=== PATIENT | male | born 1945 | race Caucasian/White ===

== ENCOUNTER 2017-12-16 09:03 | Day surgery (SDC) | payer MEDICARE ==
--- NOTE | 2017-12-16 02:20 | History and Physical Report ---
DATE: 12/15/2017. CHIEF COMPLAINT AND HISTORY OF CHIEF COMPLAINT: This patient presents with a history of intractable postlumbar laminectomy radiculopathy. He has had three spinal surgeries including cervical, thoracic, and lumbar. Due to the failure of all therapy, he presents today for an implanted spinal catheter infusion trial with hydromorphone to determine if the implantation of a permanent system can be of any value in pain control. PAST MEDICAL HISTORY: Hypertension, thrombophlebitis, pancreatitis. PAST SURGICAL HISTORY: Lumbar, cervical, and thoracic spinal surgeries; retinal surgery; prostate surgery; bilateral hip replacements. MEDICATIONS ON ADMISSION: To be provided. ALLERGIES: Codeine and Ultram. SOCIAL HISTORY: Caffeine. FAMILY HISTORY: Hypertension, prostate cancer. REVIEW OF SYSTEMS: The patient is appropriate and in no acute distress. The remainder of the systems review shows glasses, dentures, blood pressure problems , peripheral edema, chronic abdominal pain, depression, difficulty sleeping. PHYSICAL EXAMINATION: General: Height and weight are unavailable. Vital Signs: Unavailable. HEENT: Within normal limits. Lungs: Clear. Heart: Regular rate and rhythm. Abdomen: Nontender. Musculoskeletal: Examination of the musculoskeletal system shows diffuse and generalized sensory and motor abnormalities. Sensory matos are dulled and difficult to elicit. His motor functionality shows diffuse weakness across the anterior and posterior musculature. Ambulation: He is assistive device dependent for ambulation. Neurologic: Cranial nerves are intact. IMPRESSION: 1. POST LUMBAR LAMINECTOMY SYNDROME, ICD-10 CODE M96.1. 2. LUMBAR RADICULOPATHY, ICD-10 CODE M54.16 AND M54.17. PLAN: The patient is here for an implanted spinal catheter infusion trial with hydromorphone to determine if the implantation of a permanent system can be of any value in pain control. He has pedicle screw and katina fusion from T11 through L2 along with bone fusion and laminectomies throughout L3 through 5-S1. Catheter placement will be below the hardware fusion. The question will be whether or not an epidural blood patch can be performed in the laminotomy sites. Our plan is for an implanted catheter trial with hydromorphone with an external pump. The potential risks, side effects, and complications have been carefully reviewed and discussed including spinal cord injury, nerve root injury , and spinal headache. Information was provided and reviewed including that provided by the international account representative who discussed it with the patient. We have discussed all of the potential risks, side effects, and complications. The patient understands and has agreed and consented. We will consider the procedure outpatient, although an overnight stay will be evaluated. JOB NUMBER: [id number] cc: Isaak Quach M.D. MTDJean Pierre
[~2017-12-16 09:03] MED LIST: ACETAMINOPHEN 1,000 MG/100 ML BTL IV ONE; CEFAZOLIN 2 Gram 2 GM/50 ML BAG IVPB ONE; FAMOTIDINE 20MG TABLET PO ONE; HYDROMORPHONE PF 2MG/ML AMP 0.008 MG in 0.9 % SODIUM CHLORIDE 10ML VIA 0.996 ML IV ONE; HYDROMORPHONE PF 2MG/ML AMP 4 MG in 0.9 % SODIUM CHLORIDE 500ML 498 ML IV ONE; MECLIZINE 25 MG TABLET PO ONE; METOCLOPRAMIDE 10 MG TABLET PO ONE
[2017-12-16] MEDS ORDERED: PROPOFOL 10 MG/ML VIAL IV ONE (09:04)
[2017-12-16] MEDS ORDERED: LIDOCAINE 2% MDV (20MG/ML) 20ML VIAL IV ONE (09:04)
[2017-12-16] MEDS ORDERED: BUPIVACAINE 0.5% W/EPI MPF 30 ML VIAL IVP ONE (09:04)
[2017-12-16] MEDS ORDERED: LABETALOL HCL 5MG/ML, 20ML VIAL IV ONE (09:04)
[2017-12-16] MEDS ORDERED: FENTANYL PF 100MCG/2ML VIAL IV ONE (09:04)
[2017-12-16] MEDS ORDERED: HYDROMORPHONE HCL 2 MG/ML VIAL IV ONE ×2 (09:04)
[2017-12-16] MEDS ORDERED: MIDAZOLAM HCL 2MG/2ML VIAL IV ONE (09:04)
[2017-12-16] MEDS ORDERED: *PACU ONLY* KETAMINE HCL 10 MG/ML (20ML) VIAL IV ONE (09:04)
[2017-12-16] MEDS ORDERED: LIDOCAINE 1% W/EPI 1:200,000 MPF 30ML SQ ONE (09:04)
[2017-12-16 10:09] LABS: PARTIAL THROMBOPLASTIN TIME 26.6 SECONDS (24.5-39.1)
[2017-12-16] MEDS ORDERED: ACETAMINOPHEN 325 MG TAB PO PRN ×2 (12:21)
[2017-12-16] MEDS ORDERED: NALOXONE 0.4 MG/1 ML VIAL IVP PRN (12:21)
[2017-12-16] MEDS ORDERED: METOCLOPRAMIDE 10 MG TABLET PO PRN (12:21)
[2017-12-16] MEDS ORDERED: DIPHENHYDRAMINE HCL 50 MG/ML VIAL IVP PRN ×2 (12:21)
[2017-12-16] MEDS ORDERED: DIPHENHYDRAMINE HCL 25 MG CAPSULE PO PRN ×2 (12:21)
[2017-12-16] MEDS ORDERED: METOCLOPRAMIDE HCL 10 MG/2 ML VIAL IVP PRN (12:21)
[2017-12-16] MEDS ORDERED: OXYCODONE/APAP 10MG-325MG TABLET PO PRN (12:21)
[2017-12-16] MEDS ORDERED: TEMAZEPAM 15 MG CAPSULE PO PRN ×2 (12:21)
[2017-12-16] MEDS ORDERED: HYDROCODONE/APAP 7.5/325MG TABLET PO PRN ×2 (12:21)
[2017-12-16] MEDS ORDERED: HYDROMORPHONE HCL 2 MG/ML VIAL IM PRN ×2 (12:21)
[2017-12-16] MEDS ORDERED: AL HYDROX/MAG HYDROX 30ML UD PO PRN (12:21)
[2017-12-16] MEDS ORDERED: SENNOSIDES/DOCUSATE SODIUM UD CAPSULE PO PRN ×2 (12:21)
[2017-12-16] MEDS: RINGERS SOLUTION,LACTATED 1,000 ML IV SCH ×2 (13:22→21:10)
[2017-12-16] MEDS: MORPHINE SULFATE 15 MG TABLET PO SCH ×3 (13:55→22:12)
[2017-12-16] MEDS: ALPRAZOLAM 1 MG TAB PO SCH ×3 (13:56→22:15)
[2017-12-16] MEDS: CARISOPRODOL 350 MG PO SCH ×2 (15:57→22:11)
[2017-12-16] MEDS: CEFAZOLIN 2 Gram 2 GM/50 ML BAG IVPB SCH (18:10)
[2017-12-16] MEDS: OXYCODONE/APAP 10MG-325MG TABLET PO PRN (20:05)
[2017-12-16] MEDS: PATIENT OWN MED: AMITIZA 24 MCG PO SCH (22:11)
[2017-12-16] MEDS: GABAPENTIN 300 MG CAPSULE PO SCH (22:13)
[2017-12-16] MEDS: DULOXETINE HCL 30 MG CAPSULE.DR PO SCH (22:14)
[2017-12-16] MEDS: LISINOPRIL 20 MG TABLET PO SCH (22:15)
[2017-12-16] MEDS ORDERED: MAGNESIUM HYDROXIDE 30 ML UDC PO ONE (23:43)
[2017-12-17] MEDS: OXYCODONE/APAP 10MG-325MG TABLET PO PRN ×3 (00:05→09:20)
[2017-12-17] MEDS: CEFAZOLIN 2 Gram 2 GM/50 ML BAG IVPB SCH ×2 (01:05→08:15)
[2017-12-17] MEDS: RINGERS SOLUTION,LACTATED 1,000 ML IV SCH (05:21)
[2017-12-17] MEDS: MORPHINE SULFATE 15 MG TABLET PO SCH ×2 (06:00→09:13)
--- NOTE | 2017-12-17 06:45 | Operative Note ---
DATE OF SURGERY: 12/16/2017. PREOPERATIVE DIAGNOSIS: 1. POST LUMBAR LAMINECTOMY SYNDROME, ICD-10 CODE M96.1. 2. LUMBAR RADICULOPATHY, ICD-10 CODE M54.16 AND M54.17. POSTOPERATIVE DIAGNOSIS: 1. POST LUMBAR LAMINECTOMY SYNDROME, ICD-10 CODE M96.1. 2. LUMBAR RADICULOPATHY, ICD-10 CODE M54.16 AND M54.17. OPERATION: 1. Fluoroscopically guided access, spinal space at L3-4. Placement of thin- walled spinal catheter at T11. 2. Diagnostic myelography with radiologic supervision and interpretation. 3. Bolus of hydromorphone into the spinal space at 0.004 mg. 4. Incision, subcutaneous dissection, and anchoring of spinal catheter to supraspinous fascia using anchoring device and nonabsorbable suture. 5. Incision, subcutaneous dissection, and creation of subcutaneous pouch at left flank for possible placement of pump identified as [employer]. 6. Tunneling between spinal catheter pouch into flank pouch by way of tunneling tool extending spinal catheter. Interface and resect spinal catheter with a second catheter component by way of connector. 7. Second catheter component tunneled 6.0 cm superior to pouch exiting skin. Interface to external pump set to deliver hydromorphone at 0.08 mg per day. 8. Closure of midline incision with Vicryl for the fascia and running nylon for the skin. Closure of left flank pouch with running nylon for the skin. Dressings were placed securing catheter and all incisions under sterile dressing. 9. No blood patch was performed. SURGEON: Micah Taylor D.O. ANESTHESIA: Local sedation. ANESTHESIA PROVIDER: Akila Zavaleta CRNA INDICATION: This patient presents with a history of intractable postlumbar laminectomy radiculopathy. He has had no fewer than 18 spinal surgeries. Due to the failure of all therapies, he is here for an implanted spinal catheter infusion trial with hydromorphone to determine if the implantation of a permanent system can be of any value in his pain control. DESCRIPTION OF PROCEDURE: Intravenous lines, vital sign monitoring, and intravenous sedation. Prepped and draped with sterile technique with the patient positioned prone. The spinal interspace at L3-4 was marked and infiltrated. A 20-tay spinal needle with a paramedian approach, beveled with the long axis was inserted into the spinal space with cerebrospinal fluid flow. This was accomplished using imaging with AP and lateral views. With cerebrospinal fluid flow, a thin-walled spinal catheter was advanced and positioned at T11. The needle was retracted slightly to stop cerebrospinal fluid flow which was noted. The skin above and below the needle was infiltrated. An incision was made and subcutaneous dissection was conducted to the supraspinous fascia. The needle was removed, and the catheter was anchored to the supraspinous fascia with an anchoring device and nonabsorbable suture. Cerebrospinal fluid was still noted through the catheter. Diagnostic myelography was performed, and the flow characteristics were distinctly abnormal but appropriate. There was no pain or response on the part of the of the patient with the injection. A bolus of hydromorphone 0.004 mg was given. Cerebrospinal fluid was still noted through the catheter. The catheter was clamped to stop the cerebrospinal fluid leak. At the left flank, a site for the possible placement of the programmable pump, the skin was infiltrated. Incision was made and subcutaneous dissection was conducted to form a small subcutaneous pouch. The spinal catheter was then tunneled into this flank pouch. The spinal catheter was resected and interfaced with the second catheter component by way of the connector. The second catheter component was tunneled 6.0 cm superior from this pouch and exited the skin. This external component was then interfaced to an external infusion pump which was set to deliver hydromorphone at 0.08 mg a day. The midline incision was closed with Vicryl for the fascia and a running nylon suture for the skin. The left flank pouch was closed with a running nylon. Dressings were placed securing the incisions, catheter, and all connections under sterile dressing with the pump set to infuse 0.08 mg a day. The patient was kept flat and transported to the recovery room stable, showing no side effects from the procedure or the sedation. He had full functionality of the extremities, and he was complaining of no pain other than the incision. No epidural blood patch was performed because there was no access from the diffuse spinal surgical sites. He will be monitored and kept overnight and will then be discharged in the morning. DISCHARGE INSTRUCTIONS: 1. The sites are to remain clean and dry. No showering or bathing in any way that would disrupt the dressings. If this happens, contact the clinic. 2. Standard medications to be resumed including Levaquin the antibiotic 500 mg once a day for 14 days. 3. He will be contacted by the office in the next 24 to 48 hours to set up an appointment in the office for his first increase in the infusion. A total of three increases will be scheduled in the office. At the end of this 14-day trial period, he will be brought back to surgery and either the internal catheter will be removed or the permanent pump will be interfaced and placed. 4. Spinal opioid side effects including respiratory depression, nausea, vomiting, constipation, urinary retention, lightheadedness, and rash have all been discussed and reviewed. 5. He will be seen in the office within the next five to seven days. 6. All other instructions were provided and numbers to contact with problems were given. JOB NUMBER: [id number] cc: Isaak Romano M.D. MTDD
[2017-12-17] MEDS ORDERED: PANTOPRAZOLE SODIUM 40 MG TABLET PO SCH (07:00)
[2017-12-17] MEDS: CARISOPRODOL 350 MG PO SCH (09:10)
[2017-12-17] MEDS: PATIENT OWN MED: AMITIZA 24 MCG PO SCH (09:11)
[2017-12-17] MEDS: GABAPENTIN 300 MG CAPSULE PO SCH (09:11)
[2017-12-17] MEDS: ALPRAZOLAM 1 MG TAB PO SCH (09:12)
[2017-12-17] MEDS: LISINOPRIL 20 MG TABLET PO SCH (09:13)
[2017-12-17] MEDS: DULOXETINE HCL 30 MG CAPSULE.DR PO SCH (09:13)
[2017-12-17] MEDS ORDERED: METOPROLOL SUCC 50 MG TABLET PO SCH (10:00)
[2017-12-17] MEDS ORDERED: SIMVASTATIN 20 MG TABLET PO SCH (10:00)
[2017-12-17] MEDS ORDERED: FLUOXETINE HCL 20 MG CAPSULE PO SCH (10:00)
--- NOTE | 2017-12-18 22:07 | RADIOLOGY REPORT ---
EXAM: SPINE, 1 VIEW HISTORY: POST PAIN PUMP TRIAL. TECHNIQUE: Single AP view of the lumbar spine. COMPARISON: No prior lumbar spine series. FINDINGS: The patient is post-op posterior fusion of T12 to L3 with interpedicular screws and bridging rods. The patient was rotated somewhat but there appears to be extensive bony fusion, particularly along the left side of the lumbar spine. Bilateral AMINAH's are partially seen. There may be some faint contrast density in the region of the spinal canal at the lumbosacral level and correlation with the procedure history is suggested. There is a tiny dot-like density overlying the T12 vertebral body, which could be the superior extent of an intraspinal catheter in the appropriate clinical setting and, again, correlation with the procedure history is suggested. IMPRESSION: 1. BILATERAL AMINAH'S PARTIALLY SEEN. 2. EXTENSIVE POST-OP POSTERIOR FUSION FROM T12 TO L3 AND PROBABLY BONY FUSION ALONG THE LEFT SIDE OF MUCH OF THE LUMBAR SPINE DOWN TO THE SACRUM. 3. POSSIBLE SMALL AMOUNT OF CONTRAST IN THE SPINAL CANAL AT THE LUMBOSACRAL LEVEL AND POSSIBLY A TINY CATHETER MARKER AT THE T12 LEVEL. CORRELATION WITH THE PROCEDURE ITSELF SUGGESTED. JOB NUMBER: [id number] [facility]
== END 2017-12-17 11:43 | disposition home or self-care (01) ==
LOC: SUR 09:03 → MEDSURG 12:25 → SUR 12-17 11:23
PROVIDERS: ATTEND Pain Medicine Interventional Pain Medicine
DX: M96.1 Postlaminectomy syndrome, not elsewhere classified (principal); M54.16 Radiculopathy, lumbar region; M54.17 Radiculopathy, lumbosacral region; I10 Essential (primary) hypertension; E78.00 Pure hypercholesterolemia, unspecified; D64.9 Anemia, unspecified; G89.29 Other chronic pain
CPT/HCPCS: 62350; 62362; 01936; 85730; 85002; 72020; 94760 ×2; Q9967; J3010; J1170 ×2; J0690 ×2; J7040; J7120

== ENCOUNTER 2017-12-30 13:48 | Day surgery (SDC) | payer MEDICARE ==
--- NOTE | 2017-12-30 06:35 | History and Physical Report ---
DATE: 12/30/2017. CHIEF COMPLAINT AND HISTORY OF CHIEF COMPLAINT: This patient presents with a history of many laminectomies and lumbar radiculopathy. An implanted spinal catheter infusion trial was initiated on 12/16/2017. Although he has not experienced greater than 50 percent pain control, he has been able to withdraw off medications and has been able to improve his overall leg stability. He is here for possible completion of the implanted infusion trial by placement of a programmable pump interfaced to the indwelling spinal catheter for a continuous intraspinal infusion of hydromorphone. PAST MEDICAL HISTORY: Hypertension, thrombophlebitis, pancreatitis. PAST SURGICAL HISTORY: Lumbar and cervical thoracic spinal surgeries estimated at 17 total, bilateral hip replacements, prostate surgery. MEDICATIONS ON ADMISSION: To be provided. ALLERGIES: Codeine and Ultram. SOCIAL HISTORY: Caffeine. FAMILY HISTORY: Hypertension and prostate cancer. REVIEW OF SYSTEMS: The patient is appropriate and in no acute distress. The remainder of the systems review shows glasses, dentures, blood pressure problems , peripheral edema, chronic abdominal pain, depression, and difficulty sleeping. PHYSICAL EXAMINATION: General: Height and weight are unavailable. Vital Signs: Unavailable. HEENT: Within normal limits. Lungs: Clear. Heart: Rapid. Abdomen: Nontender. Musculoskeletal: Examination of the musculoskeletal system shows the dressings for the implanted catheter trial in place and intact. The infusion pump is functional. Primary pain pattern is a postlaminectomy radiculopathy. There is bilateral lower extremity function. The sensory evaluation shows deficits across major dermatome front and back surface of the legs. His motor function is difficult to assess as he is sitting in a wheelchair and has generalized weakness throughout his extremities. Neurologic: Cranial nerves are intact. IMPRESSION: 1. POSTLUMBAR LAMINECTOMY SYNDROME, ICD-10 CODE M96.1. 2. LUMBAR RADICULOPATHY, ICD-10 CODE M54.16 AND M54.17. PLAN: This patient is here for completion of the implanted spinal catheter infusion trial with hydromorphone. At this point we are still negotiating and discussing whether or not implantation of a device would be of appreciable value. He has achieved some degree of functionality, and his and the patient also agree that this is the best pain control he has achieved; although he has not, as instructed, stopped his oral benzodiazepines or muscle relaxants. The patient and his 's comments are that he has come off of so many oral opioids that he needs this medication to prevent him from going into withdrawal. Although I would certainly agree he was on a significantly, and unusually high, amount of oral medications, and we have been successful in weaning him off of those medications, he still has not complied with the instructions. I will state to the patient and his for qualification if we implant the device he must come off of his medications. I will not prescribe his medications and I will only provide him with the device. If this is insufficient then no device will be implanted today. If he agrees to these conditions, we will implant the device and manage the infusions in an attempt to provide him with better quality of life and functionality. We will consider the procedure outpatient, although an overnight stay may be necessary because of his history. JOB NUMBER: [id number] cc: Isaak Quach M.D. MTDJean Pierre
[~2017-12-30 13:48] MED LIST changes: +HYDROMORPHONE HCL 0.08 GM in 0.9 % SODIUM CHLORIDE 10ML VIA 40 ML IV ONE; +HYDROMORPHONE PF 2MG/ML AMP 0.004 MG in 0.9 % SODIUM CHLORIDE 10ML VIA 0.998 ML IV ONE
[2017-12-30] MEDS ORDERED: MIDAZOLAM HCL 2MG/2ML VIAL IV ONE (13:49)
[2017-12-30] MEDS ORDERED: PROPOFOL 10 MG/ML VIAL IV ONE (13:49)
[2017-12-30] MEDS ORDERED: LIDOCAINE 1% MDV (10MG/ML) 20ML VIAL SQ ONE (13:49)
--- NOTE | 2017-12-31 13:38 | Operative Note - Ferro ---
DATE OF SURGERY: 12/30/2017 PREOPERATIVE DIAGNOSIS: 1. POST LUMBAR LAMINECTOMY SYNDROME, ICD-10 CODE M96.1. 2. LUMBAR RADICULOPATHY, ICD-10 CODE M54.16 AND M54.17. 3. IMPLANTED SPINAL CATHETER INFUSION TRIAL HYDROMORPHONE. POSTOPERATIVE DIAGNOSIS: 1. POST LUMBAR LAMINECTOMY SYNDROME, ICD-10 CODE M96.1. 2. LUMBAR RADICULOPATHY, ICD-10 CODE M54.16 AND M54.17. 3. IMPLANTED SPINAL CATHETER INFUSION TRIAL HYDROMORPHONE. OPERATION: 1. REMOVAL OF EXTERNAL DRESSING, SECURING EXTERNAL CATHETER INTERFACE TO IMPLANTED CATHETER AND EXTERNAL INFUSION PUMP. 2. NEW INFUSION BAG 500 ML HYDROMORPHONE 0.008 MG PER ML CONCENTRATION, INTERFACE EXTERNAL CATHETER, EXTERNAL CATHETER INTERFACED TO IMPLANTED SPINAL CATHETER USING FULL STERILE TECHNIQUE. 3. DIAGNOSTIC MYELOGRAPHY WITH RADIOLOGIC SUPERVISION AND INTERPRETATION. 4. INITIATING EXTERNAL INFUSION PUMP TO DELIVER HYDROMORPHONE AT 0.485 MG HYDROMORPHONE PER DAY. SURGEON: Micah Taylor D.O. ANESTHESIA: Local sedation. ANESTHESIA PROVIDER: Nick Hahn CRNA INDICATION: This patient with an ongoing implanted spinal catheter infusion trial of Hydromorphone has reached the maximum limit of the current infusion bag and has not achieved appreciable pain control. Because he has not achieved significant pain control due to the limitations of the infusion volume in the external bag, he has not been able to reduce oral medications and we are unable to evaluate the success of the trial to determine if implanting a permanent system would be of value and for that reason we will remove under sterile conditions the dressings which are enclosing the external portion of the implanted catheter along with the external catheter component to the external infusion pump, replacing the infusion bag with the new 500 ml volume and reinitiate the infusion trial starting at an increased dose. His trial will extend seven days and at the end of that seven day period we will either implant a full complete system or remove the implanted the catheter. PROCEDURE: An intravenous line was placed, vital sign monitoring, IV sedation by Anesthesia, the patient was positioned prone, sterile prep. All of the external dressing was removed under sterile conditions. A sterile prep was performed. The external catheter connection to the implanted catheter was then using external component to the implanted spinal catheter and maintaining sterility, a diagnostic myelogram was performed under radiologic supervision and interpretation. The contrast flow characteristics identified the tip of the catheter surrounded by extensive fusion hardware of the spine with appropriate myelogram characteristics identified the tip of the catheter would presume to approximate the T12-L1 level. At that point a bolus of Hydromorphone 0.004 mg was given through the spinal catheter. A new external pump catheter component was placed onto the field maintaining its sterility, this catheter component was interfaced to a new 500 ml infusion bag filled with Hydromorphone at 0.008 mg per ml. This new catheter component was then interfaced with the external permanent catheter connection. A dressing was placed securing the connection between the internal and external catheter under full sterile dressing securing the catheter externally under the dressing to insure the catheter would not be pulled or . The infusion on the external pump was then started at delivery of 0.485 mg per day. He was transferred to the Recovery Room stable, no side effects. He will be monitored until stable and then discharged. DISCHARGE INSTRUCTIONS: 1. He will continue the trial for seven days, at the end of the seven day period we will either remove the implanted catheter or implant the pump itself. 2. He is to reduce his Soma as previously instructed from two 350 mg three times a day to one 350 mg three times a day. Initially he was told to reduce his Xanax from four to zero per day. I have allowed him to go back to his original dose of Xanax 0.5 mg four times a day because of the potential withdrawal. His oral immediate release Morphine which is 15 mg per pill taking five a day. He has exceeded the dose taking seven to eight a day so no refills will be provided. 3. The office is to contact the patient in the next two to three days to evaluate his status. He will continue with his previous restrictions maintaining sterility of the dressings. No showering or bathing in any way. He will be evaluated for potential side effect. He should monitor for lightheadedness, drowsiness, urinary retention, rash, or constipation. Any lightheadedness or drowsiness or other complications should be reported to the clinic or go to the local Emergency Room. All other instructions were provided. JOB NUMBER: [id number] MTDD
== END 2017-12-30 16:52 | disposition home or self-care (01) ==
LOC: SUR 13:48
PROVIDERS: ATTEND Pain Medicine Interventional Pain Medicine
DX: M96.1 Postlaminectomy syndrome, not elsewhere classified (principal); M54.16 Radiculopathy, lumbar region; M54.17 Radiculopathy, lumbosacral region; I10 Essential (primary) hypertension; E78.00 Pure hypercholesterolemia, unspecified
CPT/HCPCS: 62350; 01936; J0690; J1170; J7040

== ENCOUNTER 2018-05-26 09:41 | Day surgery (SDC) | payer MEDICARE ==
--- NOTE | 2018-05-25 15:52 | History and Physical - Ferro ---
CHIEF COMPLAINT/HISTORY OF CHIEF COMPLAINT: This patient with a post laminectomy radiculopathy had a spinal opioid infusion trial in the past, but ended up being hospitalized for other reasons and was evaluated for surgery. The spinal catheter was reviewed and the trial terminated. He is here today for repeat trial with an implanted catheter with Hydromorphone. PAST MEDICAL HISTORY: Hypertension, thrombophlebitis, and pancreatitis. PAST SURGICAL HISTORY: Eighteen lumbar spinal surgeries, retinal surgery, prostate surgery, and bilateral hip replacements. MEDICATIONS ON ADMISSION: List to be provided. ALLERGIES: CODEINE AND ULTRAM. FAMILY/PSYCHOSOCIAL HISTORY: Social history - Caffeine. Family history - Hypertension and prostate cancer. SYSTEMS REVIEW: The patient is appropriate. The remainder of the systems review is positive for glasses, dentures, blood pressure problems, hypertension , peripheral edema, chronic abdominal pain, depression and difficulty sleeping. PHYSICAL EXAMINATION: Height is 5'11", no weight noted. Vital signs - Blood pressure 140/80. Current examination shows diffuse tenderness throughout the thoracic and lumbar spine. Range of motion is difficult and painful producing pain throughout both lower extremities across the front and back surface. There is a generalized weakness into both legs and a generalized pattern of numbness across the front and back surface of both legs. Ambulation - Assistive device utilized. NEUROLOGIC: Cranial nerves are intact. IMPRESSION: POST LUMBAR LAMINECTOMY SYNDROME, ICD-10 CODE M96.1 WITH RADICULOPATHY, ICD-10 CODE M54.16 AND M54.17. PLAN: The patient is here for an implanted spinal catheter infusion trial with Hydromorphone. The procedure will be considered outpatient although an overnight stay will be evaluated. The potential risks, side effects, and complications have been carefully reviewed and discussed including nerve root injury, spinal cord injury, and paralysis. The trial will run for two weeks, during this period of time we will schedule three increases and at the end of the two week trial period we will either implant the permanent device and remove the implanted catheter. An epidural blood patch will be performed during this hospitalization so he will stay flat for four and slowly elevated for one as a prophylactic measure. The patient understands and agrees and complies. JOB NUMBER: [id number] MTDD
[~2018-05-26 09:41] MED LIST changes: -HYDROMORPHONE HCL 0.08 GM in 0.9 % SODIUM CHLORIDE 10ML VIA 40 ML IV ONE; -HYDROMORPHONE PF 2MG/ML AMP 0.004 MG in 0.9 % SODIUM CHLORIDE 10ML VIA 0.998 ML IV ONE; -HYDROMORPHONE PF 2MG/ML AMP 4 MG in 0.9 % SODIUM CHLORIDE 500ML 498 ML IV ONE; +HYDROMORPHONE PF 2MG/ML AMP 8 MG in 0.9 % SODIUM CHLORIDE 500ML 496 ML IV ONE
[2018-05-26] MEDS ORDERED: HYDROMORPHONE HCL 2 MG/ML VIAL IV ONE (09:42)
[2018-05-26] MEDS ORDERED: 0.9 % SODIUM CHLORIDE 10 ML VIAL IVP ONE (09:42)
[2018-05-26] MEDS ORDERED: CEFAZOLIN 1G VIAL IM ONE (09:42)
[2018-05-26] MEDS ORDERED: MIDAZOLAM HCL 2MG/2ML VIAL IV ONE (09:42)
[2018-05-26] MEDS ORDERED: FENTANYL PF 100MCG/2ML VIAL IV ONE (09:42)
[2018-05-26] MEDS ORDERED: PROPOFOL 10 MG/ML VIAL IV ONE (09:42)
[2018-05-26] MEDS ORDERED: BUPIVACAINE 0.5% W/EPI MPF 30 ML VIAL IVP ONE (09:42)
[2018-05-26] MEDS ORDERED: LIDOCAINE 2% MDV (20MG/ML) 20ML VIAL IV ONE (09:42)
[2018-05-26] MEDS ORDERED: LIDOCAINE 1% W/EPI 1:200,000 MPF 30ML SQ ONE (09:42)
[2018-05-26] MEDS ORDERED: HYDROMORPHONE HCL 2 MG/ML VIAL IM PRN (14:10)
[2018-05-26] MEDS ORDERED: NALOXONE 0.4 MG/1 ML VIAL IVP PRN (14:10)
[2018-05-26] MEDS ORDERED: METOCLOPRAMIDE 10 MG TABLET PO PRN (14:10)
[2018-05-26] MEDS ORDERED: TEMAZEPAM 15 MG CAPSULE PO PRN ×2 (14:10)
[2018-05-26] MEDS ORDERED: SENNOSIDES/DOCUSATE SODIUM UD CAPSULE PO PRN ×2 (14:10)
[2018-05-26] MEDS ORDERED: OXYCODONE/APAP 10MG-325MG TABLET PO PRN (14:10)
[2018-05-26] MEDS ORDERED: HYDROCODONE/APAP 7.5/325MG TABLET PO PRN ×2 (14:10)
[2018-05-26] MEDS ORDERED: AL HYDROX/MAG HYDROX 30ML UD PO PRN (14:10)
[2018-05-26] MEDS ORDERED: ACETAMINOPHEN 325 MG TAB PO PRN ×2 (14:10)
[2018-05-26] MEDS ORDERED: METOCLOPRAMIDE HCL 10 MG/2 ML VIAL IVP PRN (14:10)
[2018-05-26] MEDS ORDERED: DIPHENHYDRAMINE HCL 25 MG CAPSULE PO PRN ×2 (14:10)
[2018-05-26] MEDS ORDERED: DIPHENHYDRAMINE HCL 50 MG/ML VIAL IVP PRN ×2 (14:10)
[2018-05-26] MEDS ORDERED: TIZANIDINE HCL 4 MG TABLET PO PRN (14:13)
[2018-05-26] MEDS ORDERED: LISINOPRIL 10 MG TABLET PO ONE (15:00)
[2018-05-26] MEDS: TRAZODONE 50 MG TABLET PO SCH ×2 (15:51→21:53)
[2018-05-26] MEDS: RINGERS SOLUTION,LACTATED 1,000 ML IV SCH ×2 (16:09→21:56)
[2018-05-26] MEDS: HYDROMORPHONE HCL 2 MG/ML VIAL IM PRN ×2 (17:48→21:55)
[2018-05-26] MEDS: OXYCODONE/APAP 10MG-325MG TABLET PO PRN (19:52)
[2018-05-26] MEDS: CEFAZOLIN 2 Gram 2 GM/50 ML BAG IVPB SCH (19:53)
[2018-05-26] MEDS: DULOXETINE HCL 30 MG CAPSULE.DR PO SCH (21:53)
[2018-05-26] MEDS: LISINOPRIL 10 MG TABLET PO SCH (21:53)
[2018-05-26] MEDS: GABAPENTIN 300 MG CAPSULE PO SCH (21:53)
[2018-05-26] MEDS ORDERED: PANTOPRAZOLE SODIUM 40 MG TABLET PO SCH (22:00)
[2018-05-26] MEDS ORDERED: ZOLPIDEM TARTRATE 5 MG TABLET PO SCH (22:00)
[2018-05-27] MEDS: OXYCODONE/APAP 10MG-325MG TABLET PO PRN ×3 (01:40→10:13)
[2018-05-27] MEDS: CEFAZOLIN 2 Gram 2 GM/50 ML BAG IVPB SCH (03:34)
[2018-05-27] MEDS: HYDROMORPHONE HCL 2 MG/ML VIAL IM PRN (04:32)
[2018-05-27] MEDS: RINGERS SOLUTION,LACTATED 1,000 ML IV SCH (05:57)
[2018-05-27] MEDS ORDERED: SIMVASTATIN 20 MG TABLET PO SCH (10:00)
[2018-05-27] MEDS ORDERED: METOPROLOL SUCC 50 MG TABLET PO SCH (10:00)
[2018-05-27] MEDS: DULOXETINE HCL 30 MG CAPSULE.DR PO SCH (10:14)
[2018-05-27] MEDS: LISINOPRIL 10 MG TABLET PO SCH (10:14)
[2018-05-27] MEDS: TRAZODONE 50 MG TABLET PO SCH (10:14)
[2018-05-27] MEDS: GABAPENTIN 300 MG CAPSULE PO SCH (10:15)
--- NOTE | 2018-05-27 12:56 | RADIOLOGY REPORT ---
EXAM: THORACIC SPINE HISTORY: PAIN PUMP TRIAL. TECHNIQUE: Portable AP view of the thoracic spine was performed. FINDINGS: Pain pump tip in the lumbar spine. Postop fusion of T12 through L3 levels. IMPRESSION: POSTOP FUSION OF T12 THROUGH L1. PAIN PUMP TIP AT THE L1 LEVEL. JOB NUMBER: [id number] MTDD
--- NOTE | 2018-05-28 08:03 | Operative Note ---
DATE: 05/26/2018. PRIMARY CARE PHYSICIAN: Kristina Woodward M.D. PREOPERATIVE DIAGNOSES: 1. POSTLUMBAR LAMINECTOMY SYNDROME, ICD-10 CODE M96.1. 2. LUMBAR RADICULOPATHY, ICD-10 CODE M54.16 AND M54.17. PROCEDURES: 1. Fluoroscopically guided access spinal space at L4-5. Placement of thin- walled spinal catheter at T10-11. 2. Diagnostic myelography with radiologic supervision and interpretation. 3. Spinal opioid bolus of hydromorphone 0.06 mg into the spinal space. 4. Incision, subcutaneous dissection, and anchoring of spinal catheter to supraspinous fascia with an anchor and nonabsorbable suture. 5. Incision, subcutaneous dissection, and creation of subcutaneous pouch at the left flank. 6. Tunneling between midline catheter pouch to flank pouch, extending spinal catheter into the flank pouch. Resect and revise spinal catheter to second catheter component by way of connector. 7. Tunneling of secondary catheter component 6.0 cm superior to the flank pouch exiting the skin. 8. Interface external catheter to external pump set to deliver hydromorphone at 0.08 mg per day. 9. Closure of midline incision with Stratafix suture; #2-0 for the fascia and # 3-0 for the skin. Dermabond closure. Closure of left flank pouch with running nylon. 10. Evaluated for epidural blood patch. Not performed because of extensive hardware, laminectomy, and fusion. SURGEON: Micah Taylor D.O. ANESTHESIA: Local sedation. ANESTHESIA PROVIDER: Nick Hahn CRNA INDICATIONS: This patient presents with a history of a extensive and multiple- level spinal surgeries with screws and rods from T11 through L1 with laminectomy and fusion at L2 and L3. He is here for an implanted spinal catheter infusion trial with hydromorphone to determine if the implantation of a permanent system can be of any value in pain control. DESCRIPTION OF PROCEDURE: Intravenous lines, vital sign monitoring, and intravenous sedation. Prepped and draped with sterile technique. Spinal access was limited to L4-5. The skin was infiltrated. A 20-gauge spinal needle was used through a paramedian approach, beveled with the long axis, and was inserted into the spinal space under AP and lateral imaging. The needle was advanced into the spinal space on the lateral image. With cerebrospinal fluid flow, a thin-walled spinal catheter was advanced and positioned at T10- 11. Diagnostic myelography was performed and showed appropriate flow characteristics with the catheter at the midline. No kinks or bends. A bolus of 0.006 mg of hydromorphone was then injected into the space. The skin above and below the needle was infiltrated. An incision was made and subcutaneous dissection was conducted to the supraspinous fascia. The needle was removed, and the catheter was anchored to the supraspinous fascia with an anchor and nonabsorbable suture. There was still cerebrospinal flow noted through the catheter as there was throughout the entire procedure. The catheter was clamped to stop cerebrospinal fluid leak. At the left flank, the site picked ultimately for the pump, the skin was infiltrated. An incision was made and subcutaneous dissection was conducted to form a small pouch of suitable depth. The spinal catheter was then tunneled into the flank pouch. The catheter was then interfaced in the flank pouch with the second catheter component by way of connector. The second catheter component was then tunneled 6.0 cm superior to this site, exiting the skin. The external catheter was then interfaced to an external pump which was set to deliver hydromorphone at 0.08 mg a day. The midline incision was then closed using Stratafix suture; #2-0 for the fascia and #3-0 for the skin. The left flank incision was closed with running nylon. Dermabond closure was placed over the midline incision. No epidural blood patch was performed because of limited to no access. The patient was transported to the recovery room stable and flat with a pillow under the head and knees. The patient had no unusual complaints of pain and demonstrated full functionality of his upper and lower extremities. He was monitored until stable and was transported to the floor. He will be kept flat for four hours and then slowly elevated for one hour. He will be kept overnight for observation and will be discharged in the morning. DISCHARGE INSTRUCTIONS: 1. The sites are to remain clean and dry. No showering or bathing in any way that would disrupt dressings. If this happens, contact the clinic. 2. Standard medications to be resumed including the antibiotic Levaquin 500 mg once a day for 14 days. 3. The trial will run a total of 12 to 14 days. During this period of time we will evaluate pain control and functionality, quality of life, and medication reduction. At the end of this trial period, this patient will either have the full implant performed or the catheter will be removed. 4. All other instructions were provided including numbers to contact with problems. He will be evaluated and then discharged in the morning. JOB NUMBER: [id number] cc: Isaak Lopez M.D. MTDJean Pierre
== END 2018-05-27 13:05 | disposition home or self-care (01) ==
LOC: SUR 09:41 → MEDSURG 14:40 → SUR 05-27 13:05
PROVIDERS: ATTEND Pain Medicine Interventional Pain Medicine
DX: M96.1 Postlaminectomy syndrome, not elsewhere classified (principal); M54.16 Radiculopathy, lumbar region; M54.17 Radiculopathy, lumbosacral region; I10 Essential (primary) hypertension; E78.00 Pure hypercholesterolemia, unspecified; I25.10 Atherosclerotic heart disease of native coronary artery without angina pectoris
CPT/HCPCS: 62350; 62362; 01936; 85002; 72020; Q9967; J3490 ×2; J3010; J1170 ×3; J0690 ×2; J7040; J7120

== ENCOUNTER 2018-06-09 09:35 | Day surgery (SDC) | payer MEDICARE ==
--- NOTE | 2018-06-09 07:01 | History and Physical - [place] ---
CHIEF COMPLAINT/HISTORY OF CHIEF COMPLAINT: This patient presents with a history of post laminectomy radiculopathy and has an implanted spinal catheter infusion trial with Hydromorphone. She has been achieving 50-75% pain control and due to the failure of all therapies he has been requesting permanent implant. PAST MEDICAL HISTORY: Hypertension, thrombophlebitis, and pancreatitis. PAST SURGICAL HISTORY: Eighteen lumbar spinal surgeries, retinal surgery, prostate surgery, and bilateral hip replacements. MEDICATIONS ON ADMISSION: List to be provided. ALLERGIES: CODEINE AND ULTRAM. FAMILY/PSYCHOSOCIAL HISTORY: Social history - Caffeine. Family history - Hypertension and prostate cancer. SYSTEMS REVIEW: The patient is appropriate in no acute distress. The remainder of the systems review is positive for blood pressure problems, peripheral edema, chronic pain, depression and difficulty sleeping. PHYSICAL EXAMINATION: Height is 5'11", no weight noted. Vital signs - Not available. HEENT: Within normal limits. LUNGS: Clear. HEART: Rapid and irregular. ABDOMEN: Nontender. MUSCULOSKELETAL: Examination of the musculoskeletal system shows the catheter in place for implanted catheter trial. The rest of the infusion device is working appropriately. He is currently increasing at 0.32 mg per day Hydromorphone. The underlying pain pattern is a post laminectomy radiculopathy. NEUROLOGIC: Cranial nerves are intact. IMPRESSION: POST LUMBAR LAMINECTOMY SYNDROME, ICD-10 CODE M96.1 WITH RADICULOPATHY, ICD-10 CODE M54.16 AND M54.17. PLAN: The patient is here for permanent implantation of the spinal infusion device interfacing to the existing indwelling catheter. The procedure will be considered outpatient although an overnight stay will be evaluated. JOB NUMBER: [id number] [facility]
[~2018-06-09 09:35] MED LIST changes: +HYDROMORPHONE HCL 0.06 GM in 0.9 % SODIUM CHLORIDE 10ML VIA 20 ML IV ONE
[2018-06-09] MEDS ORDERED: PROPOFOL 10 MG/ML VIAL IV ONE (09:36)
[2018-06-09] MEDS ORDERED: FENTANYL PF 100MCG/2ML VIAL IV ONE (09:36)
[2018-06-09] MEDS ORDERED: LIDOCAINE 1% W/EPI 1:200,000 MPF 30ML SQ ONE (09:36)
[2018-06-09] MEDS ORDERED: LIDOCAINE 2% MDV (20MG/ML) 20ML VIAL IV ONE (09:36)
[2018-06-09] MEDS ORDERED: ALPRAZOLAM 1 MG TAB PO ONE (09:36)
[2018-06-09] MEDS ORDERED: MIDAZOLAM HCL 2MG/2ML VIAL IV ONE (09:36)
[2018-06-09] MEDS ORDERED: BUPIVACAINE 0.5% W/EPI MPF 30 ML VIAL IVP ONE (09:36)
[2018-06-09] MEDS ORDERED: KETAMINE HCL 100MG/1ML VIAL INJ ONE (09:36)
[2018-06-09] MEDS ORDERED: CEFAZOLIN 1G VIAL IM ONE (09:36)
--- NOTE | 2018-06-11 10:03 | Operative Note ---
DATE: 06/09/2018. PREOPERATIVE DIAGNOSES: 1. POST CERVICAL AND LUMBAR SYNDROME, ICD-10 CODE M97.1 AND M96.1. 2. LUMBAR RADICULOPATHY, ICD-10 CODE M54.16 AND M54.17. 3. IMPLANTED SPINAL CATHETER INFUSION TRIAL WITH HYDROMORPHONE. ANESTHESIA: Local sedation. ANESTHESIA PROVIDER: Nick Hahn CRNA. PROCEDURES: 1. Fluoroscopically guided incision, subcutaneous dissection, and removal of external catheter. 2. Incision, subcutaneous dissection, and formation of subcutaneous pouch at left flank for placement of pump identified as [employer] programmable 20 mL pump. 3. Revision and resection of internal spinal catheter by way of connector and interfaced to second catheter component which would interface to the pump. 4. Placement of pump onto the field prefilled with hydromorphone 3.0 mg per mL. 5. Interface pump with revised catheter. 6. Placement of pump into pouch subcutaneously formed, left posterior gluteal margin/flank, securing to posterior fascia with nonabsorbable suture at three points with pump eyelets. 7. Placement of curved 24-gauge Alegria needle into access port aspirating and clearing 1.0 mL of catheter contents, clearing catheter of opioid and cerebrospinal fluid mixture. 8. Diagnostic myelography with radiologic supervision and interpretation. 9. Programming of pump to deliver by continuous infusion hydromorphone at 0.5 mg per day. 10. Closure of incision using Stratafix suture; #2-0 for the fascia and #3-0 for the skin. Dermabond closure. SURGEON: Micah Taylor D.O. ANESTHESIA: Local sedation. ANESTHESIA PROVIDER: Akila Zavaleta CRNA. INDICATIONS: This patient presents with a history of intractable postlumbar laminectomy radiculopathy. Due to the failure of all therapies, an implanted spinal catheter infusion trial with hydromorphone is ongoing with 50 to 75 percent pain control. Due to the failure of all other therapies and the success of the trial, by the patient's request she is here for permanent implantation. DESCRIPTION OF PROCEDURE: Intravenous lines, vital sign monitoring, and intravenous sedation. Prepped and draped with sterile technique. The patient was positioned prone. The externalized dressing holding the external catheter down was removed. The external catheter was cut and clamped to stop leak, and the external pump was removed from the field. Sterile prep and sterile technique and under imaging. A small subcutaneous pouch at the left flank previously formed for the pump was infiltrated. An incision was made and subcutaneous dissection was conducted to form a pouch of suitable size and depth for the pump identified as a [employer] 20 mL programmable pump. The pouch was widened. The external catheter was then identified with respect to the interface to the indwelling catheter. The catheter was clamped and cut, and the external catheter was removed by pulling away from the incision. The internal spinal catheter was then interfaced with a second catheter component by way of a connector. A 20 mL programmable pump prefilled with hydromorphone was then placed onto the field. The pump was then interfaced with the revised catheter and its connection with the pump catheter connection made. Antibiotic irrigation was performed in the pouch. The pump was then placed into the pouch and secured to the posterior fascia with nonabsorbable suture at three points with pump eyelets. The access port was at 2 o'clock. With the pump secured in the pouch, a 24-gauge Alegria needle was inserted into the access port, and 1.0 mL of catheter contents was aspirated, clearing the catheter of opioid and cerebrospinal fluid mixture. Diagnostic myelography was then performed through the access port. Under imaging flow characteristics were identified through the pump and were appropriate. The pump catheter connection was imaged with no kinks, bends, or leaks. The tip of the catheter was noted approximating the mid to low thoracic spine with appropriate flow characteristics confirming functionality. At that point, the incision was closed using Stratafix suture; #2-0 for the fascia and #3-0 for the skin. Dermabond closure. The pump was then programmed to deliver by continuous infusion hydromorphone at 0.5 mg per day. Once the Dermabond dressing was in place, he was transported to the recovery room stable with no side effects from the procedure. He will be monitored until stable and will then be discharged. DISCHARGE INSTRUCTIONS: 1. The Dermabond dressing will remain intact. He may shower but may not sit in water; no tubs. 2. He will resume antibiotics for another seven days. 3. Because he has side effects with Levaquin, he will be started on Keflex 500 mg four times a day for seven days. 4. The office will contact the patient in the next 24 to 48 hours to set up a time in the next 7 to 10 days to evaluate the sites. Until then his activities should stay low. He should limit bend, lift, push, and pull. 5. Once he is seen in the office, he will be cleared for further activities. 6. The potential side effects from spinal opioids including respiratory depression, nausea, vomiting, constipation, urinary retention, light headedness , and rash have been reviewed with the patient and his . 7. He was stable and was then prepared for discharge. JOB NUMBER: [id number] cc: Isaak Romano Dr. [facility] HOSPITALJean Pierre
== END 2018-06-09 14:54 | disposition home or self-care (01) ==
LOC: SUR 09:35
PROVIDERS: ATTEND Pain Medicine Interventional Pain Medicine
DX: M96.1 Postlaminectomy syndrome, not elsewhere classified (principal); M54.16 Radiculopathy, lumbar region; M54.17 Radiculopathy, lumbosacral region; I10 Essential (primary) hypertension; E78.00 Pure hypercholesterolemia, unspecified; R52 Pain, unspecified
CPT/HCPCS: 62350; 62362; 01936; 62368; Q9967; J3010; J0690; J1170; J3490; C1755; C1776